=== PATIENT | male | born 1985 | race Caucasian/White ===

== ENCOUNTER → 2020-07-21 | Outpatient (CLI) | payer OTHER ==
[~2020-07-21] MED LIST: ISOVUE-370 76% 100ML VIAL As Ordered ONE
--- NOTE | 2020-07-21 08:55 | REPVR ---
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 Radiation optimization: All CT scans at this facility use at least one of these dose optimization techniques: automated exposure control; mA and/or kV adjustment per patient size (includes targeted exams where dose is matched to clinical indication); or iterative reconstruction. Contrast material: ISOVUE 370; Contrast volume: 75 ml; Contrast route: INTRAVENOUS (IV); COMPARISON: No relevant prior studies available. FINDINGS: Nasopharynx: Unremarkable. Oropharynx: Unremarkable. No significant tonsillar enlargement. Hypopharynx: Unremarkable. Larynx: Unremarkable. Normal epiglottis. Retropharyngeal space: Unremarkable. Submandibular/Parotid glands: Normal. Glands are normal in size. Thyroid: Normal. No enlarged or calcified nodules. Lymph nodes: Unremarkable. No lymphadenopathy. Trachea: Visualized trachea is unremarkable. Lungs: Unremarkable as visualized. Bones/joints: Unremarkable. No acute fracture. Soft tissues: There is a well-circumscribed, oblong 3.2 x 1.3 x 3.0 cm fat attenuation lesion superficial to the strap musculature to the right of midline, compatible with lipoma. This correlates with the site of palpable abnormality indicated by the radiopaque marker. It appears homogeneous, without complex soft tissue elements. 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 Electronically signed by: Keya Mir On 07/21/2020 08:55:45 AM
== END ==
LOC: M RAD 07:57
PROVIDERS: ATTEND Surgery
DX: Q89.2 Congenital malformations of other endocrine glands (principal)
CPT/HCPCS: 70491; Q9967

== ENCOUNTER 2020-10-27 05:59 | Day surgery (SDC) | payer OTHER ==
[~2020-10-27] VITALS: Ht 177.8 cm; Wt 85.6 kg
[2020-10-27] MEDS ORDERED: LIDOCAINE 1% MDV 20ML VIAL SQ PRN (06:00)
--- OUTSIDE RECORDS SUMMARY | 2020-10-27 06:03 | CCD | Continuity of Care Document ---
Author Author CHRISS OTT, Kuldeep [facility] Organization Unknown Address [address] [place] [id number] Phone [phone] Care Team Providers Care Ground Support Equipment Fitter Name Role Phone Aubrey Zayas M.D. AUTM [phone] AUTM Unavailable Problems Description No Information Available Social History Type Date Description Comments Sex Unknown ETOH Use 1-2 A Week Tobacco Use Start: Unknown Denies Smoking Recreational Drug Use Denies Drug Use Allergies, Adverse Reactions, Alerts Description No Known Drug Allergies Medications Description No Active Medications Immunizations Description No Information Available Vital Signs Date Vital Result Comment 10/13/2020 11:49am Height 70 inches 5'10" Weight 186.00 lb BMI (Body Mass Index) 26.7 kg/m2 [place] Body Weight 166 lb Weight 84.370 kg BSA (Body Surface Area) 2.02 m2 Results Description No Information Available Procedures Description No Information Available Medical Devices Description No Information Available Encounters Description No Information Available Assessments Description No Information Available Plan of Treatment No Information Available Functional Status Description No Information Available Mental Status Description No Information Available Referrals Refer to Reason for Referral Status Appt Date Pravin Melo M.D. CONGENITAL MALFORMATIONS OTH ER ENDOCRINE OFFICE CONSULT NEW OR ESTAB PT (1) 09/14/2020-03/13/2021 OFFICE/OUTPATIENT ESTAB MINIMAL UT (3) 09/14/2020-09/14/2021 Scheduled 10/10/[address] [place] [phone]
--- OUTSIDE RECORDS SUMMARY | 2020-10-27 06:03 | CCD ---
Author Author [facility] Organization [facility] Address Unknown Phone Unavailable Care Team Providers Care Project Economist Name Role Phone Estefani JONES KIARA Unavailable Unavailable Re-disclosure Warning The records that you are about to access may contain information from federally-assisted alcohol or drug abuse programs. If such information is present, then the following federally mandated warning applies: This information has been disclosed to you from records protected by federal confidentiality rules (42 CFR part 2). The federal rules prohibit you from making any further disclosure of this information unless further disclosure is expressly permitted by the written consent of the person to whom it pertains or as otherwise permitted by 42 CFR part 2. A general authorization for the release of medical or other information is NOT sufficient for this purpose. The Federal rules restrict any use of the information to criminally investigate or prosecute any alcohol or drug abuse patient.The records that you are about to access may contain highly sensitive health information, the redisclosure of which is protected by Article 27-F of the [facility] Public Health law. If you continue you may have access to information: Regarding HIV / AIDS; Provided by facilities licensed or operated by the [facility] Office of Mental Health; or Provided by the [facility] Office for People With Developmental Disabilities. If such information is present, then the following [facility] mandated warning applies: This information has been disclosed to you from confidential records which are protected by state law. State law prohibits you from making any further disclosure of this information without the specific written consent of the person to whom it pertains, or as otherwise permitted by law. Any unauthorized further disclosure in violation of state law may result in a fine or skilled nursing sentence or both. A general authorization for the release of medical or other information is NOT sufficient authorization for further disc losure. Encounters Encounter Providers Location Date Indications Data Source(s ) Outpatient Attender: KIARA JONES 08/19/2020 03:24:00 PM [facility] 08/19/2020 12:00:00 AM [place] [id number] ([facility][Note 3]) Insurance Providers Payer name Policy type / Coverage type Policy ID Covered green party ID Covered green party's relationship to ruiz Policy Ruzi Plan Information [employer] [id number] SP [id number] [employer] O [id number] S [id number] [employer] WPS [id number] S [id number] O UNAVAILABLE UNAVAILA BLE [employer]Y [id number] Problems, Conditions, and Diagnoses Code Display Name Description Problem Type Effective Dates Data Source(s) 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 Diagnosis 08/19/2020 03:24:00 PM [facility] Vital Signs ID Date Data Source UNK Name Value Range Interpretation Code Description Data Source(s) Body surface area Derived from formula 2.02 m2 2.02 m2 [facility] ([facility]) Body weight 84.370 kg 84.370 kg [facility] ([facility]) [place] body weight 166 [lb_av] 166 [lb_av] MEDEN T ([facility]) Body mass index (BMI) [Ratio] 26.7 kg/m2 26.7 k g/m2 [facility] ([facility]) Body weight 186.00 [lb_av] 186.00 [lb_av] MEDEN T ([facility]) Body height 70 [in_i] 70 [in_i] [facility] ([facility]) 5'10" Oxygen saturation in Arterial blood by Pulse oximetry 98 % 98 % eCW1 ([facility][Note 3]) Respiratory rate 17 /min 17 /min eCW1 ([facility]) Heart rate 55 /min 55 /min eCW1 ([facility]) Body temperature 98.1 [degF] 98.1 [degF] eCW1 ( [facility][Note 3]) Body weight 190.8 [lb_av] 190.8 [lb_av] eCW1 ([facility])
--- OUTSIDE RECORDS SUMMARY | 2020-10-27 06:03 | CCD ---
Author Author [facility] Organization [facility] Address Unknown Phone Unavailable Care Team Providers Care Computer Forensics Technician Name Role Phone Juan Shirley Unavailable PROBLEMS No Information ALLERGIES No Known Allergies ENCOUNTERS from 1984 to 2020-08-19 Encounter Location Date Provider Diagnosis [facility] [address] [place] [address] 2019 Juan Shirley Thyroglossal cyst Q89.2 IMMUNIZATIONS No Information SOCIAL HISTORY Sex Assigned At : Social History Observation Description Sex Assigned At Unknown REASON FOR REFERRAL No Information VITAL SIGNS Weight 190.8 lbs Aug, Temperature 98.1 degrees Fahrenheit Aug, Heart Rate 55 /min Aug, Respiratory Rate 17 /min Aug, Oximetry 98 % Aug, Blood pressure systolic 129 mmHg Aug, Blood pressure diastolic 71 mmHg Aug, MEDICATIONS No Known Medications PROCEDURES No Information RESULTS No Results REASON FOR VISIT lump on neck MEDICAL (GENERAL) HISTORY Type Description Date Surgical History wisdom teeth extracted Goals Section No Information Health Concerns No Information MEDICAL EQUIPMENT No Information MENTAL STATUS No Information FUNCTIONAL STATUS No Information ASSESSMENTS Encounter Date Diagnosis Assessment Notes Treatment Notes Treatm ent Clinical Notes Aug, 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
[2020-10-27] MEDS ORDERED: dexameTHASONE 4 MG/ML 1ML VIAL (J1100 PER 1MG) IV ONE (06:20)
[2020-10-27] MEDS ORDERED: LR 1,000 ML IV ONE (06:20)
[2020-10-27] MEDS ORDERED: ONDANSETRON 4MG/2ML VIAL As Ordered ONE (07:04)
[2020-10-27] MEDS ORDERED: MIDAZOLAM INJ 2MG/2ML VIAL (J2250 PER 1MG) As Ordered ONE (07:04)
[2020-10-27] MEDS ORDERED: dexameTHASONE 4 MG/ML 1ML VIAL (J1100 PER 1MG) As Ordered ONE (07:04)
[2020-10-27] MEDS ORDERED: fentaNYL 250 MCG/5 ML INJECTION (J3010) As Ordered ONE (07:04)
[2020-10-27] MEDS ORDERED: LIDOCAINE 2% 100MG/5ML SDV (FOR ANES.) As Ordered ONE (07:05)
[2020-10-27] MEDS ORDERED: ROCURONIUM BROMIDE 50 MG/5 ML VIAL As Ordered ONE ×2 (07:05→09:12)
[2020-10-27] MEDS ORDERED: propofoL 200 MG/20 ML VIAL As Ordered ONE (07:05)
[2020-10-27] MEDS ORDERED: POLYSPORIN TOPICAL OINTMENT 15GM As Ordered ONE (07:09)
[2020-10-27] MEDS ORDERED: LIDOCAINE W/EPINEPHRINE 1% 20ML VIAL As Ordered ONE (07:09)
[2020-10-27] MEDS ORDERED: SUGAMMADEX SODIUM 500 MG/5 ML VIAL (BRIDION) As Ordered ONE (07:45)
[2020-10-27] MEDS ORDERED: CEFUROXIME INJ 750 MG VIAL (J0697 PER 750MG) As Ordered ONE (09:49)
[2020-10-27] MEDS ORDERED: ONDANSETRON 4MG/2ML VIAL IV PRN (11:15)
[2020-10-27] MEDS ORDERED: LR 1,000 ML IV SCH (11:15)
[2020-10-27] MEDS ORDERED: oxyCODONE 5MG TAB PO PRN (11:15)
[2020-10-27] MEDS ORDERED: fentaNYL 100 MCG/2 ML INJECTION (J3010) IV PRN (11:15)
[2020-10-27 14:00] VITALS: BP 139/78
== END 2020-10-27 14:32 | disposition home or self-care (01) ==
LOC: M SDC 05:59
PROVIDERS: ATTEND Otolaryngology
DX: D23.4 Other benign neoplasm of skin of scalp and neck (principal); I34.0 Nonrheumatic mitral (valve) insufficiency; K21.9 Gastro-esophageal reflux disease without esophagitis
CPT/HCPCS: 60280; 88300; 88304; J0697; J1100; J2250; J2405; J3010

== ENCOUNTER → 2020-11-07 | Outpatient (CLI) | payer OTHER ==
--- NOTE | 2020-11-09 11:54 | ECHO ---
DATE OF PROCEDURE: 11/07/2020 Age: 35 Gender: Male Height: 70 inches Weight: 184 pounds Body Surface Area: 2.0 m2 PATIENT LOCATION: Outpatient. REFERRING PHYSICIAN: Aubrey Zayas. INDICATION: Murmur. MEASUREMENTS: 2D Measurements: RV 2.6 cm LV 4.7 cm Septum 0.9 cm Posterior wall 0.9 cm Aortic Root 2.8 cm LA 3.0 cm LVEF 65% Doppler Measurements: AV 1.21 m/s LVOT 0.95 m/s MV-E 79, A 45, EA ratio 1.7 Early mitral deceleration time 240 msec E prime medial 10, A prime medial 8, E prime lateral 16 PV - 0.8 m/s Pulmonary artery acceleration time 137 msec RVSP 21 mmHg IVC - 1.7 cm COMMENTS: Sinus bradycardia without intraventricular conduction disturbance. M-mode and 2-dimensional echocardiography was performed with pulse, continuous wave, color flow, and tissue Doppler studies. Normal left ventricular size, wall thickness, and wall motion. Normal left atrial size and Doppler assessment of LV diastolic function and estimated mean left atrial pressure. Normal right heart chamber sizes and motion with normal estimated pulmonary arterial pressure. Normal IVC size and collapse against an elevated central venous pressure. Normal aortic dimensions. Normal appearing and functioning aortic valve. Normal appearing mitral valve with adequate leaflet excursion and no posterior systolic buckling. Very mild (physiologic) insufficiency. Normal appearing tricuspid valve with very mild insufficiency. No apparent intracardiac mass or pericardial effusion. Unable to detect a structural or functional abnormality to account for the patient's heart murmur. Suspect flow or physiological phenomenon. MTDD
== END ==
LOC: M CARPUL 11:22
PROVIDERS: ATTEND Surgery
DX: Q23.3 Congenital mitral insufficiency (principal)